=== PATIENT | female | born 1940 | race Caucasian/White ===

== ENCOUNTER → 2017-04-13 | Outpatient (CLI) | payer OTHER ==
[~2017-04-13] MED LIST: ADULT LOW DOSE81 MG; ASA-EC81 MG PO; CARDIZEM CD120 MG PO; CARTIA XT120 MG; CARTIA XT120 MG PO; COZAAR25 MG; Cozaar PO; LAMICTAL200 MG; NEURONTIN300 MG PO; PLAVIX75 MG; Plaquenil PO; TESSALON PERLE100 M1 PO; TUSSI PRES-B L120 M1 PO; ZITHROMAX TRI-500 MG PO; ZOCOR20 MG; ZOCOR40 MG PO; ZoCOR 20MG TABLET PO
== END | disposition home or self-care (01) ==
LOC: SONOGRAMA 07:52
DX: N13.30 Unspecified hydronephrosis (principal)

== ENCOUNTER 2017-06-07 10:10 | Outpatient (CLI) | payer OTHER | END 2017-06-07 10:35 | disposition home or self-care (01) | LOC: RAD 501 10:10 | DX: S86.891A Other injury of other muscle(s) and tendon(s) at lower leg level, right leg, initial encounter (principal) ==

== ENCOUNTER → 2017-07-13 | Outpatient (CLI) | payer OTHER | END | disposition home or self-care (01) | LOC: NUCLEAR 07:44 | DX: I20.8 Other forms of angina pectoris (principal) | CPT/HCPCS: 78452; 93017; A9500; J0153 ==

== ENCOUNTER 2017-07-17 11:00 | Outpatient (CLI) | payer OTHER | END 2017-07-17 12:42 | disposition home or self-care (01) | LOC: NUCLEAR 11:00 | DX: M81.0 Age-related osteoporosis without current pathological fracture (principal) ==

== ENCOUNTER → 2017-11-10 | Emergency (ER) | payer OTHER ==
[~2017-11-10] VITALS: Ht 157.5 cm; Wt 68.0 kg
== END | disposition home or self-care (01) ==
LOC: ER 15:55
DX: R42 Dizziness and giddiness (principal)

== ENCOUNTER 2017-11-14 18:11 | Emergency (ER) | payer OTHER ==
[~2017-11-14] VITALS: Ht 157.5 cm; Wt 68.0 kg
== END 2017-11-14 21:32 | disposition home or self-care (01) ==
LOC: ER 18:11
DX: I16.0 Hypertensive urgency (principal); I10 Essential (primary) hypertension; M79.605 Pain in left leg

== ENCOUNTER 2017-11-19 11:05 | Emergency (ER) | payer OTHER ==
[~2017-11-19] VITALS: Ht 157.5 cm; Wt 68.0 kg
[2017-11-19] MEDS ORDERED: LIPITOR20 MG (11:13)
== END 2017-11-19 12:17 | disposition home or self-care (01) ==
LOC: ER 11:05
DX: R42 Dizziness and giddiness (principal)

== ENCOUNTER 2018-01-06 01:48 | Emergency (ER) | payer OTHER ==
[~2018-01-06] VITALS: Ht 157.5 cm; Wt 72.6 kg
[~2018-01-06 01:48] MED LIST changes: +LIPITOR20 MG
[2018-01-06] MEDS ORDERED: MECLIZINE HCL25 MG PO (08:08)
[2018-01-06] MEDS ORDERED: PHENERGAN25 MG PO (08:08)
[2018-01-09] MEDS ORDERED: LAMICTAL200 M1 (03:48)
== END 2018-01-06 08:48 | disposition home or self-care (01) ==
LOC: ER 01:48
DX: R42 Dizziness and giddiness (principal); F06.4 Anxiety disorder due to known physiological condition

== ENCOUNTER 2018-01-08 04:46 | Emergency (ER) | payer OTHER ==
[~2018-01-08] VITALS: Ht 160 cm; Wt 72.6 kg
[~2018-01-08 04:46] MED LIST changes: +MECLIZINE HCL25 MG PO; +PHENERGAN25 MG PO
[2018-01-09] MEDS ORDERED: LAMICTAL200 M1 (03:48)
== END 2018-01-08 11:36 | disposition home or self-care (01) ==
LOC: ER 04:46
DX: R53.81 Other malaise (principal); F99 Mental disorder, not otherwise specified; F41.0 Panic disorder [episodic paroxysmal anxiety]

== ENCOUNTER → 2018-01-09 | Emergency (ER) | payer OTHER ==
[~2018-01-09] VITALS: Ht 157.5 cm; Wt 72.6 kg
[~2018-01-09] MED LIST changes: +CARDURA8 MG; +LAMICTAL200 M1
== END | disposition left against medical advice (07) ==
LOC: ER 03:36
DX: Z53.20 Procedure and treatment not carried out because of patient's decision for unspecified reasons (principal)

== ENCOUNTER 2018-01-16 21:18 | Inpatient (IN) | payer OTHER ==
[~2018-01-16] VITALS: Ht 152.4 cm; Wt 90.7 kg
[~2018-01-16 21:18] MED LIST changes: -CARDURA8 MG
[2018-01-16] MEDS ORDERED: CARDURA8 MG (22:10)
== END 2018-02-22 11:50 | DRG 4 ==
LOC: ER 21:18 → ICU 01-17 14:17 → ICU-2 01-17 14:17 → ICU 01-19 21:33 → SURG 02-18 01:16
PROVIDERS: Otolaryngology; ADMIT Specialist
PROC: 5A1945Z Respiratory Ventilation, 24-96 Consecutive Hours (ICD-10-PCS; 2018-01-17)
PROC: 0BH17EZ Insertion of Endotracheal Airway into Trachea, Via Natural or Artificial Opening (ICD-10-PCS; 2018-01-17)
PROC: 3E0F7GC Introduction of Other Therapeutic Substance into Respiratory Tract, Via Natural or Artificial Opening (ICD-10-PCS; 2018-01-17)
PROC: 4A033R1 Measurement of Arterial Saturation, Peripheral, Percutaneous Approach (ICD-10-PCS; 2018-01-17)
PROC: BW28ZZZ Computerized Tomography (CT Scan) of Head (ICD-10-PCS; 2018-01-17)
PROC: 3E1G78Z Irrigation of Upper GI using Irrigating Substance, Via Natural or Artificial Opening (ICD-10-PCS; 2018-01-17)
PROC: 0T9B70Z Drainage of Bladder with Drainage Device, Via Natural or Artificial Opening (ICD-10-PCS; 2018-01-17)
PROC: 02HV33Z Insertion of Infusion Device into Superior Vena Cava, Percutaneous Approach (ICD-10-PCS; 2018-01-19)
PROC: 0DH63UZ Insertion of Feeding Device into Stomach, Percutaneous Approach (ICD-10-PCS; 2018-01-28)
PROC: 0B110F4 Bypass Trachea to Cutaneous with Tracheostomy Device, Open Approach (ICD-10-PCS; principal; 2018-01-28 07:00)
PROC: 3E0G76Z Introduction of Nutritional Substance into Upper GI, Via Natural or Artificial Opening (ICD-10-PCS; 2018-01-29)
PROC: BW21Y0Z Computerized Tomography (CT Scan) of Abdomen and Pelvis using Other Contrast, Unenhanced and Enhanced (ICD-10-PCS; 2018-02-01)
PROC: 8E0ZXY6 Isolation (ICD-10-PCS; 2018-02-08)
PROC: B54MZZZ Ultrasonography of Right Upper Extremity Veins (ICD-10-PCS; 2018-02-11)
PROC: 30233N1 Transfusion of Nonautologous Red Blood Cells into Peripheral Vein, Percutaneous Approach (ICD-10-PCS; 2018-02-11)
DX: J96.01 Acute respiratory failure with hypoxia (principal); J69.0 Pneumonitis due to inhalation of food and vomit; K35.33 Acute appendicitis with perforation, localized peritonitis, and gangrene, with abscess; I63.89 Other cerebral infarction; G93.1 Anoxic brain damage, not elsewhere classified; F31.89 Other bipolar disorder; G81.94 Hemiplegia, unspecified affecting left nondominant side; N39.0 Urinary tract infection, site not specified; K57.92 Diverticulitis of intestine, part unspecified, without perforation or abscess without bleeding; E46 Unspecified protein-calorie malnutrition; Z99.11 Dependence on respirator [ventilator] status; I82.621 Acute embolism and thrombosis of deep veins of right upper extremity; T43.8X2A Poisoning by other psychotropic drugs, intentional self-harm, initial encounter; T17.220A Food in pharynx causing asphyxiation, initial encounter; M06.89 Other specified rheumatoid arthritis, multiple sites; L93.0 Discoid lupus erythematosus; T50.995A Adverse effect of other drugs, medicaments and biological substances, initial encounter; I25.10 Atherosclerotic heart disease of native coronary artery without angina pectoris; I25.84 Coronary atherosclerosis due to calcified coronary lesion; Z86.73 Personal history of transient ischemic attack (TIA), and cerebral infarction without residual deficits; K58.8 Other irritable bowel syndrome; E11.21 Type 2 diabetes mellitus with diabetic nephropathy; E11.65 Type 2 diabetes mellitus with hyperglycemia; Z79.4 Long term (current) use of insulin; I70.0 Atherosclerosis of aorta; I65.23 Occlusion and stenosis of bilateral carotid arteries; E66.01 Morbid (severe) obesity due to excess calories; B96.4 Proteus (mirabilis) (morganii) as the cause of diseases classified elsewhere; F41.0 Panic disorder [episodic paroxysmal anxiety]; E11.40 Type 2 diabetes mellitus with diabetic neuropathy, unspecified; B96.29 Other Escherichia coli [E. coli] as the cause of diseases classified elsewhere; R13.12 Dysphagia, oropharyngeal phase; Z93.0 Tracheostomy status; E87.6 Hypokalemia; E83.42 Hypomagnesemia; Z16.12 Extended spectrum beta lactamase (ESBL) resistance; Z66 Do not resuscitate

== ENCOUNTER 2018-04-17 10:12 | Outpatient (CLI) | payer OTHER ==
[~2018-04-17 10:12] MED LIST changes: +CARDURA8 MG
== END 2018-04-17 12:24 | disposition home or self-care (01) ==
LOC: LAB 10:12
DX: D68.8 Other specified coagulation defects (principal); D64.89 Other specified anemias; N39.0 Urinary tract infection, site not specified; E11.65 Type 2 diabetes mellitus with hyperglycemia; E78.2 Mixed hyperlipidemia; E03.8 Other specified hypothyroidism; B96.5 Pseudomonas (aeruginosa) (mallei) (pseudomallei) as the cause of diseases classified elsewhere; B95.7 Other staphylococcus as the cause of diseases classified elsewhere

== ENCOUNTER 2019-11-14 09:55 | Inpatient (IN) | payer OTHER ==
[~2019-11-14] VITALS: Ht 160 cm; Wt 46.7 kg
[2019-11-14] MEDS ORDERED: HYDRALAZINE HCL25 MG (10:21)
[2019-11-14] MEDS ORDERED: HYDROXYZIN10 MG/5 ML PO (10:22)
[2019-11-14] MEDS ORDERED: ATIVAN1 M1 (10:23)
--- NOTE | 2019-11-14 10:24 | NUR ---
SE RECIBE FEMINA DE 79ANOS CON ACOMPANANTE, QUE REFIERE QUE LE DUELE LA PIERNA IZQUIERDA SE MARITZA S/V SE UBICA EN BEATRIZ DE ESPERA
--- NOTE | 2019-11-14 10:52 | NUR ---
PACIENTE ALERTA Y ORIENTADA EN TIEMPO LUGAR Y PERSONA. SE ORIENTA SOBRE TRATAMIENTO ORDENADO POR DRA. DIALLO, PTE JAQUI DE DUDAS AL MOMENTO. SE ADMINISTRA MEDICAMENTO ORDENADO UTILIZANDO MEDIDAS ASEOTICAS ADECUADAS. PTE EN ESPERA DE RESULTADOS PARA RE-EVALUACION MEDICA.
[2019-11-18] MEDS ORDERED: ELIQUIS2.5 MG PO (09:31)
[2019-11-18] MEDS ORDERED: ULTRACET PO (09:31)
== END 2019-11-18 14:56 | disposition home or self-care (01) | DRG 470 ==
LOC: ER 09:55 → SURH 19:19
PROVIDERS: ADMIT Orthopaedic Surgery; ATTEND Orthopaedic Surgery
PROC: 0SRS0JZ Replacement of Left Hip Joint, Femoral Surface with Synthetic Substitute, Open Approach (ICD-10-PCS; principal; 2019-11-15 08:00)
DX: S72.012A Unspecified intracapsular fracture of left femur, initial encounter for closed fracture (principal); F31.89 Other bipolar disorder; I10 Essential (primary) hypertension; L93.0 Discoid lupus erythematosus; E11.21 Type 2 diabetes mellitus with diabetic nephropathy; M81.8 Other osteoporosis without current pathological fracture; F41.8 Other specified anxiety disorders; W18.39XA Other fall on same level, initial encounter